=== PATIENT | male | born 1930 | race Caucasian/White ===

== ENCOUNTER 2021-05-06 09:36 | Inpatient (IN) | payer MEDICARE, OTHER ==
[~2021-05-06] VITALS: Ht 167.6 cm; Wt 92.5 kg
[2021-05-06 10:19] LABS: HEMOGLOBIN 13.4 gm/dl (14.0-17.5); RED BLOOD COUNT 4.52 M/UL (4.20-5.50); WHITE BLOOD COUNT 7.1 K/UL (4.5-11.0)
[2021-05-06 10:45] LABS: BUN/CREATININE RATIO 20 (0-10)
[2021-05-07 04:29] LABS: HEMOGLOBIN 12.3 gm/dl (14.0-17.5); WHITE BLOOD COUNT 6.8 K/UL (4.5-11.0)
[2021-05-07 04:30] LABS: RED BLOOD COUNT 3.98 M/UL (4.20-5.50)
[2021-05-07] MEDS ORDERED: ARTIFICIAL TEA1 EACH OU (13:21)
[2021-05-07] MEDS ORDERED: LACRILUBE OPTH3.5 GM EYEBOTH (13:22)
[2021-05-07] MEDS ORDERED: BUSPIRONE HCL15 MG PO (13:22)
[2021-05-07] MEDS ORDERED: ASPIRIN EC81 MG PO (13:22)
[2021-05-07] MEDS ORDERED: DILTIAZEM 24HR240 M1 PO (13:23)
[2021-05-07] MEDS ORDERED: VITAMIN D325 MCG PO (13:23)
[2021-05-07] MEDS ORDERED: ZESTRIL 40 MG T40 MG PO (13:24)
[2021-05-07] MEDS ORDERED: NEURONTIN300 MG PO (13:24)
[2021-05-07] MEDS ORDERED: SYNTHROID125 MCG PO (13:24)
[2021-05-07] MEDS ORDERED: FLONASE ALLER15.8 ML (13:24)
[2021-05-07] MEDS ORDERED: PEPCID20 MG PO (13:24)
[2021-05-07] MEDS ORDERED: CLARITIN10 MG PO (13:25)
[2021-05-07] MEDS ORDERED: LOVASTATIN40 MG PO (13:25)
[2021-05-07] MEDS ORDERED: GLUCOPHAGE1000 MG PO (13:25)
[2021-05-07] MEDS ORDERED: MELATONIN3 MG PO (13:25)
[2021-05-07] MEDS ORDERED: NITROSTAT0.4 MG PO (13:26)
[2021-05-07] MEDS ORDERED: LOPRESSOR100 MG PO (13:26)
[2021-05-07] MEDS ORDERED: [UNRECOGNIZED DRUG - CODE] TOP (13:27)
[2021-05-07] MEDS ORDERED: LASIX20 MG PO (13:28)
[2021-05-08 04:32] LABS: HEMOGLOBIN 13.3 gm/dl (14.0-17.5); RED BLOOD COUNT 4.2 M/UL (4.20-5.50); WHITE BLOOD COUNT 7.3 K/UL (4.5-11.0)
[2021-05-09 03:08] LABS: HEMOGLOBIN 13.5 gm/dl (14.0-17.5); RED BLOOD COUNT 4.37 M/UL (4.20-5.50); WHITE BLOOD COUNT 8.2 K/UL (4.5-11.0)
[2021-05-09] MEDS ORDERED: MIRALAX17 GM PO (09:46)
[2021-05-09] MEDS ORDERED: LASIX 40 MG TAB40 MG PO (09:46)
[2021-05-09] MEDS ORDERED: HYDRALAZINE HCL50 MG PO (09:46)
[2021-05-09] MEDS ORDERED: KLOR-CON M1010 MEQ PO (09:46)
[2021-05-09] MEDS ORDERED: COLACE100 MG PO (09:46)
--- NOTE | 2021-05-09 10:51 | NUR ---
WHEN AMBULATING PATIENT O2 SATURATION DROPS TO 88%
== END 2021-05-09 13:14 | disposition home health service (06) | DRG 291 ==
LOC: ER1 09:36 → CDU 17:59 → PROG CARE 17:59
PROVIDERS: Internal Medicine; Physician Assistant; ADMIT Hospitalist
DX: I11.0 Hypertensive heart disease with heart failure (principal); J96.01 Acute respiratory failure with hypoxia; J96.02 Acute respiratory failure with hypercapnia; I50.31 Acute diastolic (congestive) heart failure; E66.2 Morbid (severe) obesity with alveolar hypoventilation; E78.5 Hyperlipidemia, unspecified; K59.00 Constipation, unspecified; E55.9 Vitamin D deficiency, unspecified; E03.9 Hypothyroidism, unspecified; E11.40 Type 2 diabetes mellitus with diabetic neuropathy, unspecified; Z20.822 Contact with and (suspected) exposure to COVID-19; Z79.4 Long term (current) use of insulin; Z68.32 Body mass index [BMI] 32.0-32.9, adult
CPT/HCPCS: ECHO; 0240U; 36415; 36600; 71045; 71046; 80048; 80053; 81001; 82150; 82550; 82553; 82803; 82962; 83690; 83874; 83880; 84484; 85025; 85027; 93005; 93306; 94664; 94760; 96374; 97110-GP-CQ; 97116-GP-CQ; 97161; 97166; 97530; 99285; J1650; J1940; J7030; Q9967